=== PATIENT | female | born 1980 | race Two or more races ===

== ENCOUNTER 2024-05-10 03:58 | Emergency (ER) | payer MEDICAID, OTHER ==
[~2024-05-10] VITALS: Ht 167.6 cm; Wt 118.0 kg
[2024-05-10 06:36] VITALS: BP 122/81; PULSE 101; RESP 20; TEMP 97.6; O2SAT 96
[2024-05-10] MEDS ORDERED: DICL1GEL59 EX (06:57)
[2024-05-10] MEDS ORDERED: LIDO5DIS21 TOP (06:57)
[2024-05-10] MEDS ORDERED: CYCL-837 PO (06:57)
== END 2024-05-10 07:24 | disposition home or self-care (01) ==
LOC: EDBD 03:58 → ER 04:01
DX: R07.89 Other chest pain (principal); M54.2 Cervicalgia; V89.2XXA Person injured in unspecified motor-vehicle accident, traffic, initial encounter; Y93.89 Activity, other specified; Y92.410 Unspecified street and highway as the place of occurrence of the external cause; Y99.8 Other external cause status
CPT/HCPCS: 70450; 71250; 72125; 74176